=== PATIENT | male | born 1995 | race Caucasian/White ===

== ENCOUNTER 2022-08-05 09:43 | Inpatient (IN) | payer OTHER ==
[~2022-08-05] VITALS: Ht 167.6 cm; Wt 82.6 kg
[~2022-08-05 09:43] MED LIST: LOSARTAN-HCTZ1 EAC1 PO
[2022-08-11] MEDS ORDERED: NIFEDIPINE10 M1 (08:57)
[2022-08-11] MEDS ORDERED: ISOSORBIDE DINIT5 MG (08:57)
[2022-08-16] MEDS ORDERED: NIFEDIPINE10 M1 PO (09:21)
[2022-08-16] MEDS ORDERED: ISOSORBIDE DINIT5 MG PO (09:22)
== END 2022-08-16 11:34 | disposition home or self-care (01) | DRG 328 ==
LOC: ADM 12:15 → SURG 08-11 07:00 → ICU 08-11 07:37 → O/R 08-11 07:37 → EDSTATUS 08-11 12:15 → CIR.AMB 08-11 12:15 → SURG 08-11 12:15 → ICUI 08-11 20:57 → ICU 08-11 20:58
PROVIDERS: ADMIT Surgery; ATTEND Surgery
PROC: 8E0W0CZ Robotic Assisted Procedure of Trunk Region, Open Approach (ICD-10-PCS; 2022-08-11)
PROC: 0D844ZZ Division of Esophagogastric Junction, Percutaneous Endoscopic Approach (ICD-10-PCS; principal; 2022-08-11 07:00)
PROC: [UNRECOGNIZED PROCEDURE] (2022-08-14)
DX: K22.0 Achalasia of cardia (principal)
CPT/HCPCS: 43330; 43279; S2900